=== PATIENT | male | born 1990 | race Caucasian/White ===

== ENCOUNTER 2017-10-19 16:32 | Emergency (ER) | payer OTHER ==
--- NOTE | 2017-10-19 16:35 | EDM.PDOC ---
ED HPI GENERAL MEDICAL PROBLEM - General Stated Complaint: ABDOMINAL PAIN Time Seen by Provider: 10/19/17 16:34 Source of Information: Reports: Patient - History of Present Illness INITIAL COMMENTS - FREE TEXT/NARRATIVE: HISTORY AND PHYSICAL: History of present illness: [Patient presents with right testicular pain denies no mass scar or lesion no redness warmth no injury/trauma no dysuria, patient describes a monogamous relationship last intercourse last Saturday symptoms began on Saturday ] Review of systems: As per history of present illness and below otherwise all systems reviewed and negative. Past medical history: As per history of present illness and as reviewed below otherwise noncontributory. Surgical history: As per history of present illness and as reviewed below otherwise noncontributory. Social history: No reported history of drug or alcohol abuse. Family history: As per history of present illness and as reviewed below otherwise noncontributory. Physical exam: HEENT: Atraumatic, normocephalic, pupils reactive, negative for conjunctival pallor or scleral icterus, mucous membranes moist, throat clear, neck supple, nontender, trachea midline. Lungs: Clear to auscultation, breath sounds equal bilaterally, chest nontender. Heart: S1S2, regular, negative for clicks, rubs, or JVD. Abdomen: Soft, nondistended, nontender. Negative for masses or hepatosplenomegaly. Negative for costovertebral tenderness. Pelvis: Stable nontender. GenitouExternal exam no mass scar or lesion no exudate at the meatus testicles exam within normal limits slight swelling and tenderness of distal epididymis and tenderness of right testicle no obvious mass lesion Rectal: Deferred. Extremities: Atraumatic, negative for cords or calf pain. Neurovascular unremarkable. Neuro: Awake, alert, oriented. Cranial nerves II through XII unremarkable. Cerebellum unremarkable. Motor and sensory unremarkable throughout. Exam nonfocal. Diagnostics: [UA GC Chlamydia urine culture Ultrasou scrotum and contents Therapeutics: [1 g azithromycin by mouth now Rocephin 250 mg IM Bactrim double strength ] Impression: Right epididymis/orchitis Definitive disposition and diagnosis as appropriate pending reevaluation and review of above. Right Groin Pain Score (Numeric/FACES): 4 - Related Data Allergies Allergy/AdvReac Type Severity Reaction Status Date / Time morphine Allergy unsure Verified 03/01/15 00:25 Home Meds: Home Meds . [No Known Home Meds] 03/01/15 [History] Social & Family History - Tobacco Use Smoking Status *Q: Never Smoker - Recreational Drug Use Recreational Drug Use: No ED ROS GENERAL - Review of Systems Review Of Systems: ROS reveals no pertinent complaints other than HPI. ED EXAM, GENERAL - Physical Exam Exam: See Below Course - Vital Signs Last Recorded V/S: Last Vital Signs Temp 97.9 F 10/19/17 16:50 Pulse 72 10/19/17 16:50 Resp 18 10/19/17 16:50 BP 128/76 10/19/17 16:50 Pulse Ox 100 10/19/17 16:50 - Orders/Labs/Meds Orders: Active Orders 24 hr Category Date Time Status Scrotal Duplex Ltd [US] Routine Exams 10/19/17 16:34 Taken Scrotum and Contents [US] Stat Exams 10/19/17 16:34 Taken CHLAMYDIA AND GONORRHEA BY TMA Stat Lab 10/19/17 17:14 Received CULTURE URINE [RM] Stat Lab 10/19/17 17:26 Ordered UA W/MICROSCOPIC [URIN] Stat Lab 10/19/17 17:14 Ordered Labs: Laboratory Tests 10/19/17 Range/Units 17:14 Urine Color YELLOW Urine Appearance CLEAR Urine pH 6.0 (5.0-8.0) Ur Specific [place] 1.015 (1.001-1.035) Urine Protein NEGATIVE (NEGATIVE) mg/dL Urine Glucose (UA) NEGATIVE (NEGATIVE) mg/dL Urine Ketones NEGATIVE (NEGATIVE) mg/dL Urine Occult Blood NEGATIVE (NEGATIVE) Urine Nitrite NEGATIVE (NEGATIVE) Urine Bilirubin NEGATIVE (NEGATIVE) Urine Urobilinogen 0.2 (<2.0) EU/dL Ur Leukocyte Esterase NEGATIVE (NEGATIVE) Urine RBC 0-1 (0-2/HPF) Urine WBC 0-1 (0-5/HPF) Ur Epithelial Cells RARE (NONE-FEW) Urine Bacteria RARE (NEGATIVE) Urine Mucus LIGHT (NONE-MOD) Meds: Medications Discontinued Medications Generic Name Dose Route Start Last Admin Trade Name Freq PRN Reason Stop Dose Admin Azithromycin 1,000 mg 10/19/17 17:18 10/19/17 18:11 Zithromax PO 10/19/17 17:19 1,000 mg NOW STA Administration Ceftriaxone Sodium 250 mg/ 1 mls @ 1 mls/sec 10/19/17 17:18 10/19/17 18:11 Lidocaine HCl IM 10/19/17 17:19 1 mls/sec ONETIME ONE Administration Departure - Departure Time of Disposition: 18:29 Disposition: Home, Self-Care 01 Condition: Good Clinical Impression: Orchitis - Discharge Information Referrals: Thomas Magana MD [Primary Care Provider] - Additional Instructions: The following information is given to patients seen in the emergency department who are being discharged to home. This information is to outline your options for follow-up care. We provide all patients seen in our emergency department with a follow-up referral. The need for follow-up, as well as the timing and circumstances, are variable depending upon the specifics of your emergency department visit. If you don't have a primary care physician on staff, we will provide you with a referral. We always advise you to contact your personal physician following an emergency department visit to inform them of the circumstance of the visit and for follow-up with them and/or the need for any referrals to a consulting specialist. The emergency department will also refer you to a specialist when appropriate. This referral assures that you have the opportunity for follow-up care with a specialist. All of these measure are taken in an effort to provide you with optimal care, which includes your follow-up. Under all circumstances we always encourage you to contact your private physician who remains a resource for coordinating your care. When calling for follow-up care, please make the office aware that this follow-up is from your recent emergency room visit. If for any reason you are refused follow-up, please contact the [facility] emergency department at and asked to speak to the emergency department charge nurse. - My Orders Last 24 Hours: My Active Orders 10/19/17 16:34 Scrotal Duplex Ltd [US] Routine Scrotum and Contents [US] Stat 10/19/17 17:14 CHLAMYDIA AND GONORRHEA BY TMA Stat UA W/MICROSCOPIC [URIN] Stat 10/19/17 17:26 CULTURE URINE [RM] Stat - Assessment/Plan Last 24 Hours: My Active Orders 10/19/17 16:34 Scrotal Duplex Ltd [US] Routine Scrotum and Contents [US] Stat 10/19/17 17:14 CHLAMYDIA AND GONORRHEA BY TMA Stat UA W/MICROSCOPIC [URIN] Stat 10/19/17 17:26 CULTURE URINE [RM] Stat
[2017-10-19 16:56] VITALS: BP 128/76
[2017-10-19] MEDS ORDERED: Azithromycin 250 MG Tab PO STA (17:18)
[2017-10-19] MEDS ORDERED: cefTRIAXone 250 MG in Lidocaine 1% 1 ML IM ONE (17:18)
--- NOTE | 2017-10-21 11:52 | US ---
EXAM DATE: 10/19/17 PATIENT'S AGE: 26 Patient: GOLDIE SHIN Facility: [place], [place] Site . Site : 1992 Study: US Testicle Right -10/19/2017 6:10:07 PM Ordering Physician: Doctor Carbone Final Report: INDICATION: Right test pain TECHNIQUE: Ultrasound scrotum and contents. Real-time jarrett scale sonographic images with spectral and color Doppler imaging of the testicles were obtained. COMPARISON: None FINDINGS: Right testis: 4.4 x 2.5 x 3.2 cm. The right testis is appearance and echotexture. Normal arterial and venous blood flow seen in the right testis. Left testis: 4 x 2.7 x 3.2 cm. The left testis is appearance and echotexture. Normal arterial and venous blood flow seen in the left testis. Epididymis: The epididymis are unremarkable in size and echogenicity bilaterally. Normal and symmetric blood flow seen in the epididymis. Soft tissue: No significant hydrocele or varicocele noted. No adenopathy is seen. IMPRESSION: 1. Unremarkable scrotal ultrasound. Dictated by: Chris Feliciano MD @ 10/19/2017 18:24:30 (Electronic Signature) Report Signed by Proxy. JOSE LUIS
--- NOTE | 2017-10-21 11:53 | US ---
EXAM DATE: 10/19/17 PATIENT'S AGE: 26 Patient: GOLDIE SHIN Facility: [place], [place] Site . Site : 1990 Study: US Testicle Right -10/19/2017 6:10:07 PM Ordering Physician: Doctor Carbone Final Report: INDICATION: Right test pain TECHNIQUE: Ultrasound scrotum and contents. Real-time jarrett scale sonographic images with spectral and color Doppler imaging of the testicles were obtained. COMPARISON: None FINDINGS: Right testis: 4.4 x 2.5 x 3.2 cm. The right testis is appearance and echotexture. Normal arterial and venous blood flow seen in the right testis. Left testis: 4 x 2.7 x 3.2 cm. The left testis is appearance and echotexture. Normal arterial and venous blood flow seen in the left testis. Epididymis: The epididymis are unremarkable in size and echogenicity bilaterally. Normal and symmetric blood flow seen in the epididymis. Soft tissue: No significant hydrocele or varicocele noted. No adenopathy is seen. IMPRESSION: 1. Unremarkable scrotal ultrasound. Dictated by: Chris Feliciano MD @ 10/19/2017 18:24:30 (Electronic Signature) Report Signed by Proxy. JOSE LUIS
== END 2017-10-19 18:57 | disposition home or self-care (01) ==
LOC: MW.ED 16:32
DX: N45.2 Orchitis (principal); Z88.5 Allergy status to narcotic agent
CPT/HCPCS: 76870; 81001; 87086; 87491; 87591; 93976; 96372; 99284; A9270; J0696; 99283; J2001

== ENCOUNTER 2017-11-22 13:54 | Day surgery (SDC) | payer OTHER ==
[~2017-11-22 13:54] MED LIST: Lactated Ringers 1,000 ML IV SCH
--- NOTE | 2017-11-22 14:21 | PCM.PREANE ---
Preanesthetic Assessment - Anesthesia/Transfusion/Family Hx Anesthesia History: Prior Anesthesia Without Reaction Family History of Anesthesia Reaction: No Transfusion History: No Prior Transfusion(s) Intubation History: Unknown - Review of Systems General: No Symptoms Pulmonary: No Symptoms Cardiovascular: No Symptoms Gastrointestinal: Diarrhea (three weeks) Neurological: No Symptoms Other: Reports: None - Physical Assessment Height: 1.83 m Weight: 76.204 kg ASA Class: 2 Mental Status: Alert & Oriented x3 Airway Class: Mallampati = 1 Dentition: Reports: Normal Dentition Thyro-Mental Finger Breadths: 3 Mouth Opening Finger Breadths: 3 ROM/Head Extension: Full Lungs: Clear to Auscultation, Normal Respiratory Effort Cardiovascular: Regular Rate, Regular Rhythm - Allergies Allergies/Adverse Reactions: Allergies Allergy/AdvReac Type Severity Reaction Status Date / Time morphine Allergy Rash Verified 11/20/17 13:49 - Blood Blood Available: No - Anesthesia Plan Pre-Op Medication Ordered: None - Acknowledgements Anesthesia Type Planned: MAC Pt an Appropriate Candidate for the Planned Anesthesia: Yes Alternatives and Risks of Anesthesia Discussed w Pt/Guardian: Yes Pt/Guardian Understands and Agrees with Anesthesia Plan: Yes PreAnesthesia Questionnaire Musculoskeletal History: Reports: Fracture Other Musculoskeletal History: hx fx arm and leg Neurological History: Reports: Concussion Psychiatric History: Reports: Anxiety Dermatologic History: Reports: Other (See Below) Other Dermatologic History: hx MRSA on arm wound - Infectious Disease History Infectious Disease History: Reports: Chicken Pox - Past Surgical History Head Surgeries/Procedures: Reports: None HEENT Surgical History: Reports: Oral Surgery, Tonsillectomy Other HEENT Surgeries/Procedures: wisdom teeth - SUBSTANCE USE Smoking Status *Q: Never Smoker Tobacco Use Within Last Twelve Months: Smokeless Tobacco (quit chewing tobacco a month ago) Recreational Drug Use History: No - HOME MEDS Home Medications: Home Meds . [No Known Home Meds] 03/01/15 [History] - CURRENT (IN HOUSE) MEDS Current Meds: Current Medications Lactated Ringer's (Ringers, Lactated) 1,000 mls @ 125 mls/hr IV ASDIRECTED [facility]
[2017-11-22] MEDS ORDERED: Lidocaine 2% 5 ML SDV ONE (14:50)
[2017-11-22] MEDS ORDERED: Midazolam 1 MG/ML 2 ML SDV ONE (14:50)
[2017-11-22] MEDS ORDERED: Propofol 200 MG/20 ML SDV ONE ×2 (14:50→15:34)
[2017-11-22] MEDS ORDERED: fentaNYL 100 MCG/2 ML SDV ONE (15:06)
--- NOTE | 2017-11-22 15:59 | PCM.OPNOTE ---
- General Post-Op/Procedure Note Date of Surgery/Procedure: 11/22/17 Operative Procedure(s): attempted colonoscope w biopsy Findings: pseudomembranous colitis see dict [id number] Pre Op Diagnosis: diarrhea Post-Op Diagnosis: Same Anesthesia Technique: Moderate Sedation Primary Surgeon: Wili Brandon Pathology: bx done at 45 cm when scope went in Complications: None Condition: Good Free Text/Narrative:: Intake & Output 11/22/17 11/22/17 11/22/17 06:59 14:59 22:59 Intake Total 500 Balance 500
--- NOTE | 2017-11-22 16:19 | PCM48HPAN ---
Post Anesthesia Note - EVALUATION WITHIN 48HRS OF ANESTHETIC Vital Signs in Normal Range: Yes Patient Participated in Evaluation: Yes Respiratory Function Stable: Yes Airway Patent: Yes Cardiovascular Function Stable: Yes Hydration Status Stable: Yes Pain Control Satisfactory: Yes Nausea and Vomiting Control Satisfactory: Yes Mental Status Recovered: Yes Resp Rate: 21 - COMMENTS/OBSERVATIONS Free Text/Narrative:: no anesthesia problems
[2017-11-22 16:37] VITALS: BP 146/94
--- NOTE | 2017-11-22 18:10 | OR ---
SURGEON: Wili Brandon MD DATE OF PROCEDURE: 11/22/2017 PREOPERATIVE DIAGNOSIS: Change in bowel habits. POSTOPERATIVE DIAGNOSIS: Pseudomembranous colitis. PROCEDURE PERFORMED: Attempted colonoscopy COMPLICATIONS: None. FINDING: Asked the patient before the procedure about any abdominal pain, and the patient said no, so presumed that we will proceed. whitish membrane appearance infection and inflamation from rectum to 50 cm, and scope aborted PROCEDURE IN DETAIL: A well lubricated Olympus colonoscope was gently inserted through the rectum and immediate encountered colitis appearance in the rectum with whitish appearance and like a membranous and consistent with pseudomembranous colitis. Continued to advance all the way to 50 with some difficulty because of the amount of liquid stool, and also the inflammation and thickening of the colon and the whole appearance like a pseudomembranous colitis. Biopsy at one point, and the scope was then aborted because of the concern about complication. It is pretty full-blown pseudomembranous colitis in the 50 cm examined. Scope was withdrawn. Prior to colonoscopy, digital exam was performed, which prostate looks normal. Again, scope was aborted because of the concern about complication with a full- blown inflammatory colitis. The patient would benefit from repeat colonoscopy about 3 to 6 months and if the patient is free from abdominal pain, and the patient will be treated with Vanco and Flagyl. COLONOSCOPY FINDING: Pseudomembranous colitis and scoped up to 50 cm and aborted. SHANON / HEYDI /[id number] JOSE LUIS
== END 2017-11-22 16:30 | disposition home or self-care (01) ==
LOC: MW.SDS 13:54
PROVIDERS: ATTEND Surgery
DX: A04.72 Enterocolitis due to Clostridium difficile, not specified as recurrent (principal); Z53.09 Procedure and treatment not carried out because of other contraindication; R19.4 Change in bowel habit; K60.2 Anal fissure, unspecified; F41.9 Anxiety disorder, unspecified; Z90.89 Acquired absence of other organs; Z98.890 Other specified postprocedural states; Z87.891 Personal history of nicotine dependence
CPT/HCPCS: 45380; J2250; J3010; J7120; J2704

== ENCOUNTER 2017-11-30 17:03 | Emergency (ER) | payer OTHER ==
[2017-11-30] MEDS ORDERED: Ondansetron 4 MG/2 ML SDV IVPUSH ONE (18:06)
[2017-11-30] MEDS ORDERED: Sodium Chloride 0.9% 1,000 ML IV ONE (18:06)
--- NOTE | 2017-11-30 18:11 | EDM.PDOC ---
ED HPI GENERAL MEDICAL PROBLEM - General Chief Complaint: Gastrointestinal Problem Stated Complaint: diarrhea Time Seen by Provider: 11/30/17 17:44 Source of Information: Reports: Patient History Limitations: Reports: No Limitations - History of Present Illness INITIAL COMMENTS - FREE TEXT/NARRATIVE: Presents to the ER reporting colitis. The patient states that he is currently being worked up for colitis and has been suffering from diarrhea with blood and mucus. He has an appointment with a GI specialist in [place] and at [facility] coming up next week. His clinic provider did start him on vancomycin and metronidazole for C. difficile although the patient states that he believes the test was negative. There was some confusion about the results. In any event over the last 24 hours he has had at least 10 diarrhea stools a day and vomited this morning and now feels like he is quite dehydrated. No fever, abdominal pain except some cramping with the stools. - Related Data Allergies Allergy/AdvReac Type Severity Reaction Status Date / Time morphine Allergy Rash Verified 11/30/17 18:08 Home Meds: Home Meds Ondansetron [Zofran ODT] 4 mg PO Q6H PRN #3 tab.dis 11/30/17 [Rx] Vancomycin HCl 1 cap PO Q6H 11/30/17 [History] metroNIDAZOLE [Flagyl] 500 mg PO TID 11/30/17 [History] Past Medical History Musculoskeletal History: Reports: Fracture Other Musculoskeletal History: hx fx arm and leg Neurological History: Reports: Concussion Psychiatric History: Reports: Anxiety Dermatologic History: Reports: Other (See Below) Other Dermatologic History: hx MRSA on arm wound - Infectious Disease History Infectious Disease History: Reports: Chicken Pox - Past Surgical History Head Surgeries/Procedures: Reports: None HEENT Surgical History: Reports: Oral Surgery, Tonsillectomy Other HEENT Surgeries/Procedures: wisdom teeth Social & Family History - Family History Family Medical History: Noncontributory - Caffeine Use Caffeine Use: Reports: Coffee, Energy Drinks ED ROS GENERAL - Review of Systems Review Of Systems: ROS reveals no pertinent complaints other than HPI. ED EXAM, GI/ABD - Physical Exam Exam: See Below Exam Limited By: No Limitations General Appearance: Alert, No Apparent Distress Ears: Normal External Exam Nose: Normal Inspection Throat/Mouth: Normal Inspection Head: Atraumatic, Normocephalic Neck: Normal Inspection Respiratory/Chest: No Respiratory Distress, Lungs Clear, Normal Breath Sounds Cardiovascular: Normal Peripheral Pulses, Regular Rate, Rhythm, No Murmur GI/Abdominal Exam: Soft, Non-Tender, No Distention Back Exam: Normal Inspection Neurological: Alert, Oriented Psychiatric: Normal Affect, Normal Mood Skin Exam: Warm, Dry, Intact, Normal Color, No Rash Lymphatic: No Adenopathy Course - Vital Signs Last Recorded V/S: Last Vital Signs Temp 36.6 C 11/30/17 19:35 Pulse 101 H 11/30/17 19:35 Resp 14 11/30/17 19:35 BP 119/80 11/30/17 19:35 Pulse Ox 100 11/30/17 19:35 - Orders/Labs/Meds Labs: Laboratory Tests 11/30/17 11/30/17 Range/Units 18:20 18:20 WBC 11.58 H (4.0-11.0) K/uL RBC 5.04 (4.50-5.90) M/uL Hgb 15.0 (13.0-17.0) g/dL Hct 42.7 (38.0-50.0) % MCV 84.7 (80.0-98.0) fL MCH 29.8 (27.0-32.0) pg MCHC 35.1 (31.0-37.0) g/dL RDW Std Deviation 38.3 (28.0-62.0) fl RDW Coeff of Ilia 13 (11.0-15.0) % Plt Count 520 H (150-400) K/uL MPV 10.00 (7.40-12.00) fL Neut % (Auto) 68.6 (48.0-80.0) % Lymph % (Auto) 14.2 L (16.0-40.0) % Mchenry % (Auto) 10.3 (0.0-15.0) % Eos % (Auto) 5.6 (0.0-7.0) % Baso % (Auto) 1.3 (0.0-1.5) % Neut # (Auto) 7.9 H (1.4-5.7) K/uL Lymph # (Auto) 1.7 (0.6-2.4) K/uL Mchenry # (Auto) 1.2 H (0.0-0.8) K/uL Eos # (Auto) 0.7 (0.0-0.7) K/uL Baso # (Auto) 0.2 H (0.0-0.1) K/uL Nucleated RBC % 0.0 /100WBC Nucleated RBCs # 0 K/uL Sodium 135 L (136-148) mmol/L Potassium 4.1 (3.5-5.1) mmol/L Chloride 100 (98-107) mmol/L Carbon Dioxide 30.0 (21.0-32.0) mmol/L BUN 7 (7.0-18.0) mg/dL Creatinine 0.9 (0.8-1.3) mg/dL Est Cr Clr Drug Dosing 133.90 mL/min Estimated GFR (MDRD) > 60.0 ml/min Glucose 103 (74-106) mg/dL Calcium 9.5 (8.5-10.1) mg/dL Total Bilirubin 0.3 (0.2-1.0) mg/dL AST 15 (15-37) IU/L ALT 20 (14-63) IU/L Alkaline Phosphatase 54 (46-116) U/L Total Protein 8.1 (6.4-8.2) g/dL Albumin 3.8 (3.4-5.0) g/dL Globulin 4.3 H (2.0-3.5) g/dL Albumin/Globulin Ratio 0.9 L (1.3-2.8) Meds: Medications Discontinued Medications Generic Name Dose Route Start Last Admin Trade Name Freq PRN Reason Stop Dose Admin Sodium Chloride 1,000 mls @ 999 mls/hr 11/30/17 18:06 11/30/17 18:31 Normal Saline IV 11/30/17 19:06 999 mls/hr STAT ONE Administration Ondansetron HCl 4 mg 11/30/17 18:06 11/30/17 18:31 Zofran IVPUSH 11/30/17 18:07 4 mg ONETIME ONE Administration Departure - Departure Time of Disposition: 20:24 Disposition: Home, Self-Care 01 Clinical Impression: Colitis - Discharge Information Referrals: Wili Brandon MD [Primary Care Provider] - Forms: ED Department Discharge Additional Instructions: 1. Drink plenty of clear fluids including Gatorade sports drinks and so forth 2. Zofran ODT as needed for nausea 3. Follow-up with GI specialist in [place] and at [place] as previously arranged next week
[2017-11-30 19:28] LABS: CHLORIDE,CL 100 mmol/L (98-107); SODIUM,NA 135 mmol/L (136-148)
[2017-12-01 02:12] VITALS: BP 128/78
== END 2017-11-30 20:33 | disposition home or self-care (01) ==
LOC: MW.ED 17:03
DX: K52.9 Noninfective gastroenteritis and colitis, unspecified (principal); F41.9 Anxiety disorder, unspecified; Z88.5 Allergy status to narcotic agent; Z79.2 Long term (current) use of antibiotics
CPT/HCPCS: 36415; 80053; 85025; 96361; 96374; 99284; J2405; J7040